=== PATIENT | male | born 1960 | race Native Hawaiian/Other Pacific Islander ===

== ENCOUNTER 2018-01-13 14:11 | Outpatient (CLI) | payer OTHER ==
[~2018-01-13 14:11] MED LIST: ALBU0.0813 IN; ASA LO-DOSE81 MG PO; LORA1TAB17 PO; METO25TA4 PO; MOME50SP; NITR0.4S SL; PAMELOR25 MG PO; PEPCID40 MG PO; PRAVACHOL80 MG PO; PROVENTIL IN; SKELAXIN800 MG PO; SPIRIVA IN; TRAM50TA PO
== END 2018-01-13 20:50 | disposition home or self-care (01) ==
LOC: RAD 14:11
DX: M25.511 Pain in right shoulder (principal)

== ENCOUNTER 2018-02-24 13:51 | Outpatient (CLI) | payer OTHER | END 2018-02-24 19:51 | disposition home or self-care (01) | LOC: RAD 13:51 | DX: M25.512 Pain in left shoulder (principal) ==

== ENCOUNTER 2018-09-01 15:39 | Outpatient (CLI) | payer OTHER | END 2018-09-01 19:16 | disposition home or self-care (01) | LOC: RAD 15:39 | DX: J41.0 Simple chronic bronchitis (principal) ==

== ENCOUNTER 2019-11-30 11:29 | Outpatient (CLI) | payer OTHER | END 2019-11-30 23:07 | disposition home or self-care (01) | LOC: RAD 11:29 | DX: M54.5 Low back pain (principal) ==

== ENCOUNTER → 2021-05-29 | Outpatient (CLI) | payer OTHER | LOC: RAD 12:37 | PROVIDERS: ATTEND Physician Assistant | DX: M25.511 Pain in right shoulder (principal) ==

== ENCOUNTER 2022-01-08 10:55 | Outpatient (CLI) | payer OTHER | END 2022-01-08 20:49 | disposition home or self-care (01) | LOC: RAD 10:55 | PROVIDERS: ATTEND Internal Medicine Pulmonary Disease | DX: R06.00 Dyspnea, unspecified (principal) ==

== ENCOUNTER 2022-01-17 09:58 | Outpatient (CLI) | payer OTHER | END 2022-01-17 21:39 | disposition home or self-care (01) | LOC: MRI 09:58 | PROVIDERS: ATTEND Physician Assistant | DX: M75.111 Incomplete rotator cuff tear or rupture of right shoulder, not specified as traumatic (principal) ==

== ENCOUNTER 2022-07-13 10:04 | Emergency (ER) | payer OTHER ==
[~2022-07-13] VITALS: Ht 185.4 cm; Wt 72.6 kg
[2022-07-13 10:08] VITALS: TEMP 98.5
[2022-07-13 11:37] VITALS: BP 137/80
== END 2022-07-13 13:27 | disposition home or self-care (01) ==
LOC: ED 10:04
DX: M79.18 Myalgia, other site (principal); X50.0XXA Overexertion from strenuous movement or load, initial encounter; Y92.89 Other specified places as the place of occurrence of the external cause
CPT/HCPCS: 96372; 99283; J1885; J2360

== ENCOUNTER 2022-09-11 12:20 | Outpatient (CLI) | payer OTHER | END 2022-09-11 22:20 | disposition home or self-care (01) | LOC: MRI 12:20 | PROVIDERS: ATTEND Family Medicine | DX: S46.112D Strain of muscle, fascia and tendon of long head of biceps, left arm, subsequent encounter (principal); Y92.89 Other specified places as the place of occurrence of the external cause ==

== ENCOUNTER 2022-12-10 13:32 | Outpatient (CLI) | payer OTHER | END 2022-12-10 19:00 | disposition home or self-care (01) | LOC: US 13:32 | PROVIDERS: ATTEND Nurse Practitioner Family | DX: I73.9 Peripheral vascular disease, unspecified (principal) ==

== ENCOUNTER 2022-12-21 08:38 | Outpatient (CLI) | payer OTHER | END 2022-12-21 19:41 | disposition home or self-care (01) | LOC: RAD 08:38 | PROVIDERS: ATTEND Physician Assistant | DX: M54.59 Other low back pain (principal) ==

== ENCOUNTER 2023-02-18 20:15 | Outpatient (CLI) | payer OTHER | END 2023-02-18 22:10 | disposition home or self-care (01) | LOC: RAD 20:15 | PROVIDERS: ATTEND Orthopaedic Surgery | DX: M79.672 Pain in left foot (principal) ==